=== PATIENT | female | born 1985 | race Caucasian/White ===

== ENCOUNTER 2017-09-14 17:33 | Emergency (ER) | payer OTHER ==
[~2017-09-14] VITALS: Ht 162.6 cm; Wt 53.5 kg
[2017-09-14 17:45] VITALS: BP 134/88
== END 2017-09-14 19:02 | disposition home or self-care (01) ==
LOC: ED 17:33
DX: J02.9 Acute pharyngitis, unspecified (principal); M54.2 Cervicalgia
CPT/HCPCS: J1885

== ENCOUNTER 2018-09-26 16:11 | Emergency (ER) | payer OTHER ==
[~2018-09-26] VITALS: Ht 162.6 cm; Wt 51.7 kg
[2018-09-26 16:17] VITALS: BP 140/97; Ht 162.6 cm; Wt 51.7 kg
[2018-09-26 16:59] LABS: CALCIUM 8.5 mg/dL (8.5-10.1); CARBON DIOXIDE 22.3 mmol/L (21-32); CREATININE SERUM 2.8 mg/dL (0.6-1.0); PLATELET COUNT 282 x10^3mcL (130-400); POTASSIUM SERUM 4.9 mmol/L (3.5-5.1); RED CELL DISTRIBUTION WIDTH 12.9 % (11.5-14.5)
[2018-09-26 17:00] LABS: BASOPHIL % 0.5 % (0-2)
[2018-09-26 17:12] LABS: BILIRUBIN TOTAL 0.22 mg/dL (0.20-1.00)
[2018-09-26 17:14] LABS: ALBUMIN 3.2 g/dL (3.4-5.0)
== END 2018-09-26 18:26 | disposition home or self-care (01) ==
LOC: ED 16:11
PROVIDERS: Emergency Medicine
DX: N85.9 Noninflammatory disorder of uterus, unspecified (principal); I10 Essential (primary) hypertension; F17.210 Nicotine dependence, cigarettes, uncomplicated
CPT/HCPCS: 36415; 87491; 87591; J7030

== ENCOUNTER 2019-04-30 09:37 | Emergency (ER) | payer OTHER ==
[~2019-04-30] VITALS: Ht 162.6 cm; Wt 51.7 kg
[2019-04-30 09:46] VITALS: Ht 162.6 cm; Wt 51.7 kg
[2019-04-30 12:16] VITALS: BP 160/109
== END 2019-04-30 12:16 | disposition home or self-care (01) ==
LOC: ED 09:37
DX: N76.0 Acute vaginitis (principal); I10 Essential (primary) hypertension; Z88.5 Allergy status to narcotic agent
CPT/HCPCS: 87491; 87591